=== PATIENT | male | born 1960 | race Caucasian/White ===

== ENCOUNTER 2020-08-20 11:00 | Inpatient (IN) | payer OTHER, MEDICAID, SELFPAY ==
[~2020-08-20] VITALS: Ht 167.6 cm; Wt 68.0 kg
[2020-08-20 11:17] VITALS: BP 161/100
--- NOTE | 2020-08-20 11:17 | NUR ---
PT TAKEN TO BED 4 BY S CREW.
[2020-08-20] MEDS ORDERED: NITROGLYCERIN 0.4 MG TAB SL ONE (11:25)
[2020-08-20] MEDS ORDERED: ALBUTEROL SULFATE/IPRATROPIU 3 ML SOL IH ONE (11:25)
[2020-08-20 12:12] LABS: BASOPHILS % (AUTO) 0.4 % (0.0-2.0); EOSINOPHILS % (AUTO) 0.4 % (0.0-4.0); HEMOGLOBIN 11.6 g/dL (12.0-18.0); LYMPHOCYTES # (AUTO) 0.5 K/uL (2.0-11.5); LYMPHOCYTES % (AUTO) 5.8 % (20.5-51.1); MEAN CORPUSCULAR HEMOGLOBIN 31 pg (27-31); MEAN CORPUSCULAR HGB CONC 32 g/dL (33-37); MEAN CORPUSCULAR VOLUME 95.5 fL (80-94); MONOCYTES % (AUTO) 10.1 % (1.7-9.3); NEUTROPHILS # (AUTO) 7.9 K/uL (1.8-7.7); NEUTROPHILS % (AUTO) 83.3 % (42.2-75.2); PLATELET COUNT (AUTO) 281 K/uL (140-450); RED BLOOD CELL COUNT(AUTO) 3.77 MIL/uL (4.20-6.10); RED CELL DISTRIBUTION WIDTH 17.9 % (11.6-13.7); WHITE BLOOD COUNT (AUTO) 9.5 K/uL (4.8-10.8)
--- NOTE | 2020-08-20 12:19 | NUR ---
PT PLACED ON BIBAP. 95% ON BIPAP.
--- NOTE | 2020-08-20 12:36 | NUR ---
X-Ray at bedside.
[2020-08-20 12:44] LABS: PROTHROMBIN TIME 10.5 secs (10.8-13.4)
[2020-08-20 13:11] LABS: ALBUMIN 3.5 g/dL (3.4-5.0); ANION GAP 19.6 (8-16); CARBON DIOXIDE 23.9 mmol/L (21-32); POTASSIUM 5.5 mmol/L (3.5-5.1); TOTAL BILIRUBIN 0.5 mg/dL (0.0-1.0)
[2020-08-20 13:46] LABS: CREATININE 8.8 mg/dL (0.6-1.3)
--- NOTE | 2020-08-20 15:17 | NUR ---
PATIENT IS ASLEEP IN BED WITH BIPAP ON, DOES NOT APPEAR TO BE IN ANY DISTRESS, VITAL SIGNS STABLE
[2020-08-20] MEDS ORDERED: DOCUSATE SODIUM 100 MG GELCAP PO PRN (16:30)
[2020-08-20] MEDS ORDERED: ONDANSETRON 4 MG/2 ML VIAL IM/IVP PRN (16:30)
[2020-08-20] MEDS ORDERED: ACETAMINOPHEN 325 MG TAB PO PRN (16:30)
[2020-08-20] MEDS ORDERED: HYDROcodone/APAP 7.5/325 MG 1 TAB PO PRN (16:30)
[2020-08-20 17:26] LABS: CHOL/HDL RATIO 2.5 (1-4.5); FREE T4 (FREE THYROXINE) 0.86 ng/dL (0.76-1.46); THYROID STIMULATING HORMONE 0.35 uIU/mL (0.34-3.74)
--- NOTE | 2020-08-20 19:30 | NUR ---
RECEIVED REPORT FROM MJ RN FOR CONTINUATION OF CARE AT THIS TIME. PT IS ASLEEP IN SEMI FOWLERS POSITION. PT IS CONNECTED TO THE BONDED STRAND OPERATOR. PT IS ON 15L NRB SAO2@95%. BED IS LOCKED AND IN LOWEST POSITION. SIDE RAILSX1. PT IS NOT IN ANY ACUTE DISTRESS AT THIS TIME. WILL CONTINUE TO MONITOR.
--- NOTE | 2020-08-20 20:30 | NUR ---
PT IS ASLEEP IN SEMI FOWLERS POSITION. PT IS CONNECTED TO THE SORORITY MOTHER. PT IS ON 15L NRB SAO2@95%. BED IS LOCKED AND IN LOWEST POSITION. SIDE RAILSX1. PT IS NOT IN ANY ACUTE DISTRESS AT THIS TIME. WILL CONTINUE TO MONITOR.
--- NOTE | 2020-08-20 21:00 | NUR ---
PT REFUSING TO KEEP HIS OXYGEN MASK ON. PT REQUESTING SODA. PT WAS REMINDED THAT HE NEEDS TO KEEP HIS NRB ON IN ORDER TO PREVENT HIS OXYGEN LEVELS TO DROP.
--- NOTE | 2020-08-20 21:30 | NUR ---
PT IS RESTING IN LEFT SIDE LYING POSITION. PT IS CONNECTED TO THE DETECTIVE INVESTIGATOR. PT IS ON 15L NRB SAO2@95%. BED IS LOCKED AND IN LOWEST POSITION. SIDE RAILSX1. PT IS NOT IN ANY ACUTE DISTRESS AT THIS TIME. WILL CONTINUE TO MONITOR.
--- NOTE | 2020-08-20 22:23 | NUR ---
PT THREATENING TO LEAVE AMA BECAUSE HE WANTS A PEPSI. PT DISCONNECTED HIMSELF FROM THE PROFESSIONAL BASS FISHERMAN AND REMOVED HIS OXYGEN MASK. PT ADVISED TO KEEP HIS OXYGEN ON TO PREVENT HIM FROM DESATTING AND GOING INTO RESPIRATORY DISTRESS.
--- NOTE | 2020-08-20 23:31 | NUR ---
Spoke with Marcella the pts sister for a pt status update
--- NOTE | 2020-08-21 | NUR ---
PT IS RESTING AND LAYING ON HIS LEFT SIDE WITH HOB IN SEMI FOWLERS POSITION. PT IS CONNECTED TO THE CUTTER BANANA ROOM. PT IS ON 15L NRB SAO2@97%. BED IS LOCKED AND IN LOWEST POSITION. SIDE RAILSX1. PT IS NOT IN ANY ACUTE DISTRESS AT THIS TIME. WILL CONTINUE TO MONITOR.
--- NOTE | 2020-08-21 01:30 | NUR ---
DAYANA HUNT AND MRSA SWAB COLLECTED AND WALKED OVER TO LAB.
--- NOTE | 2020-08-21 01:50 | NUR ---
PT C/O THIRST, PROVIDED WITH ICE CHIPS. PT WAS REMINDED THAT HE IS RETAINING A LOT OF FLUID AT THIS TIME.
--- NOTE | 2020-08-21 01:50 | NUR ---
PT IS CONNECTED TO THE REGIONAL CLINICAL RESEARCH ASSOCIATE. PT IS ON 15L NRB SAO2@96%. BED IS LOCKED AND IN LOWEST POSITION. SIDE RAILSX1. PT IS NOT IN ANY ACUTE DISTRESS AT THIS TIME. WILL CONTINUE TO MONITOR.
--- NOTE | 2020-08-21 03:00 | NUR ---
PT STATED THAT HIS IV CAME OUT. IV CATHETER WAS INTACT.
--- NOTE | 2020-08-21 04:21 | NUR ---
PT REQUESTING WATER AND ICE, PROVIDED HIM WITH BOTH. PT HAD NONREBREATHER MASK OFF AND HAD DISCONNECTED HIMSELF FROM BEDSIDE MONITOR. ADVISED PT HE NEEDS TO LEAVE MASK ON DUE TO CONTINUED DESATURATION WITHOUT IT AND THE NEED TO MONITOR HIS VITAL SIGNS. PT VERBALIZED UNDERSTANDING.
[2020-08-21] MEDS ORDERED: methylPREDNISolone SS 40 MG/ML VIAL IVP SCH (05:00)
--- NOTE | 2020-08-21 05:30 | NUR ---
PT C/O THE NEED FOR HIS DIALYSIS TREATMENT. PT STATES HE NEEDS DIALYSIS NOW. PT MADE AWARE OF THE FACT THAT NO BEDS ARE AVAILABLE YET AND THAT THIS HOSPITAL DOES NOT HAVE A PORTABLE DIALYSIS MACHINE. PT IS AGGRAVATED AT THIS TIME.
--- NOTE | 2020-08-21 06:40 | NUR ---
CHARGE NURSE SPEAKING TO PT REGARDING HIS ADMISSION IN ORDER FOR HIM TO RECEIVE DIALYSIS
--- NOTE | 2020-08-21 07:15 | NUR ---
REPORT GIVEN TO MITRA HAMMONDS FOR TRANSFER OF CARE AT THIS TIME.
--- NOTE | 2020-08-21 08:23 | NUR ---
Admitted VSS Renal has seen Has been admitted Report to floor Ambulated to Placed in bed Nurse aware
[2020-08-21] MEDS ORDERED: CINACALCET 30 MG TAB PO SCH (09:00)
[2020-08-21] MEDS ORDERED: VIT-B COMP/VIT-C/FOLIC ACID 1 TAB PO SCH (09:00)
--- NOTE | 2020-08-21 09:00 | NUR ---
PATIENT ARRIVED AT [facility] AT 0900. REPORT RECEIVED FROM MITRA HAMMONDS. PATIENT ARRIVED AT FACILITY DUE TO ACUTE RESPIRATORY DISTRESS AND FLUID OVERLOAD DUE TO MISSED DIALYSIS. PATIENT IS A&OX3. HE UNDERSTANDS OTHERS AND CAN FOLLOW COMMANDS. PATIENT IS A FULL CODE. SISTER MIREYA BOB NOTIFIED OF ARRIVAL AND UPDATED ON CURRENT. DR. ORTIZ IS AWARE OF PATIENT'S TRANSFER AND DR MENDOZA THE CONSULTING SALES MANAGER IS ALSO AWARE. ORDERED DIALYSIS FROM 08/20/2020 BUT IS STILL WAITING FOR TREATMENT. PATIENT IS ABLE TO AMBULATE BUT IS UNSTEADY. PATIENT IS EXPERIENCING TACHYPNEA AND HAS SOB. HE IS ON NONREBREATHER 100% AT 15L. PATIENTS HEART SOUNDS ARE CLEAR BUT PATIENT CURRENTLY EXPERIENCING TACHYCARDIA. PATIENT IS CONTINENT IN BOWEL AND BLADDER AND PREFERS TO USE A URINAL. PATIENT'S SKIN IS HAS MULTIPLE BLISTERS AND LACERATIONS ALL ALONG HIS EXTREMITIES. PATIENT APPEARS UNCLEAN AND PREFERS TO STAY IN OUTSIDE CLOTHES. PATIENT SMOKES AND ASKS FOR A CIGARETTE EVERY TIME HE APPEARS STRESSED. PATIENT CAN SMOKE UP TO 3 PACKS A WEEK. VITALS BP 146/98 P 102 o2 SAT 100% ON 15l NONREBREATHER, RR 25, TEMP 98.4F.
[2020-08-21 11:00] LABS: BASOPHILS % (AUTO) 0.5 % (0.0-2.0); EOSINOPHILS % (AUTO) 0.4 % (0.0-4.0); HEMATOCRIT 34.6 % (36-52); HEMOGLOBIN 11.2 g/dL (12.0-18.0); LYMPHOCYTES # (AUTO) 0.5 K/uL (2.0-11.5); LYMPHOCYTES % (AUTO) 5.3 % (20.5-51.1); MEAN CORPUSCULAR HEMOGLOBIN 31 pg (27-31); MEAN CORPUSCULAR HGB CONC 32 g/dL (33-37); MEAN CORPUSCULAR VOLUME 95.9 fL (80-94); MONOCYTES # (AUTO) 1.4 K/uL (0.8-1.0); MONOCYTES % (AUTO) 15.2 % (1.7-9.3); NEUTROPHILS # (AUTO) 7.3 K/uL (1.8-7.7); NEUTROPHILS % (AUTO) 78.6 % (42.2-75.2); PLATELET COUNT (AUTO) 250 K/uL (140-450); RED BLOOD CELL COUNT(AUTO) 3.61 MIL/uL (4.20-6.10); RED CELL DISTRIBUTION WIDTH 17.8 % (11.6-13.7); WHITE BLOOD COUNT (AUTO) 9.3 K/uL (4.8-10.8)
--- NOTE | 2020-08-21 11:00 | NUR ---
PATIENT STORMS OUT OF HIS ROOM WITHOUT A MASK VERY AGITATED AND OUT OF BREATH. APPROACHED THE PATIENT AND ASKED HIM WHAT WAS WRONG AND WHY HE WAS OUT OF HIS ROOM. PATIENT STATES THAT HE HAS BEEN WAITING FOR A PEPSI AND WANTS TO SMOKE. INFORMED PATIENT THAT SMOKING IS NOT TOLERATED AT THE HOSPITAL AND HE IS PUTTING HIMSELF AT RISK BY WALKING AROUND WITHOUT A MASK. PROVIDED A MASK TO THE PATIENT. TOLD PATIENT THAT HE WILL RECEIVE A SOFT DRINK WHEN LUNCH COMES. GAVE PATIENT A TURKEY SANDWICH AND SOME WATER WHILE HE WAITED. RECONNECTED PATIENT TO NONREBREATHER @ 15L. INQUIRED ABOUT DIET ORDER WITH DR ORTIZ. ORDERED A RENAL DIET. NOTIFIED KITCHEN.
[2020-08-21 11:18] LABS: ANION GAP 25.3 (8-16)
[2020-08-21 11:31] LABS: POTASSIUM 6.3 mmol/L (3.5-5.1)
[2020-08-21 11:44] LABS: MAGNESIUM 4.3 mg/dL (1.8-2.4); PHOSPHORUS 16.2 mg/dL (2.5-4.9)
[2020-08-21 12:00] VITALS: BP 146/98
[2020-08-21] MEDS ORDERED: LANTHANUM CARBONATE 500 MG TAB PO SCH (12:00)
[2020-08-21] MEDS ORDERED: SEVELAMER CARBONATE 800 MG TAB PO SCH (12:00)
--- NOTE | 2020-08-21 12:00 | NUR ---
NOTIFIED DR MENDOZA REGARDING PATIENT'S DIALYSIS SCHEDULE. DR MENDOZA STATED THAT HE ORDERED THE DIALYSIS TREATMENT YESTERDAY. FOLLOWED UP AND CALLED IN HOUSE DIALYSIS NURSE AND SHE STATED THAT SHE WOULD COME TODAY BUT DID NOT KNOW THE TIME. NABOR FROM LAB REPORTED CRITICAL VALUES OF K+ 6.3 WITH NO HEMOLYSIS, CREATININE 11.0, BUN 86, MAG 4.3, PHOSPHORUS 16.2. NOTIFIED DR ORTIZ AND DR MENDOZA OF CRITICAL VALUES. DR MENDOZA ORDERED KAYEXALATE 60G PO X1 FOR HYPERKALEMIA. HE STATED THAT HE PREFERS THE PATIENT TO RECEIVE DIALYSIS FIRST TO SEE HOW HIS POTASSIUM IS AFTERWARDS. AT 1212 DIALYSIS NURSE ARRIVES. CONSENT FOR DIALYSIS PATIENT SIGNED AND WITNESSED.
[2020-08-21] MEDS ORDERED: SODIUM ZIRCONIUM CYCLOSILICATE 10 GM POWD.PACK PO SCH (14:00)
--- NOTE | 2020-08-21 16:40 | NUR ---
PATIENT FINISHES DIALYSIS TREATMENT WITH 3.3L DRAWN OUT. PATIENT'S BREATHING HAS IMPROVED DRASTICALLY. PATIENT NO LONGER NEEDS THE NONREBREATHER AND o2 SAT ON R/A IS 92%. VITALS BP 116/96, P 101, RR 20, o2 SAT 93% R/A, TEMP 97.4F. AT 1642 PATIENT WALKS OUT OF THE ROOM WITHOUT A MASK AGAIN STATING THAT IT'S TIME FOR HIM TO GO HOME. ASKED THE PATIENT THE REASON AND HE STATES THAT ALL HE NEEDED WAS DIALYSIS.CHARGE NURSE NOTIFIED JOVANY HALL FORM SIGNED BY PATIENT. INFORMED DAUGHTER AND SISTER WILTON BOB ABOUT PATIENT'S DECISION. SISTER WILTON STATED THAT THE PATIENT HAS A LONG HISTORY OF LEAVING [place]. DISCUSSED WITH THE PATIENT WHETHER OR NOT HE KNEW ABOUT A MASS IN HIS LUNG SEEN IN AN XRAY OF THE CHEST AND THE PATIENT STATED THAT IT HAS BEEN THERE FOR A LONG TIME AND NO ONE HAS DONE ANYTHING ABOUT IT. EXPLAINED TO THE PATIENT THAT DIALYSIS WAS NOT THE ONLY REASON FOR HIS STAY AND THAT HIS DR NEEDED TO OBTAIN A CT WITH CONTRAST AND A BIOPSY TO FIGURE OUT WHAT THE MASS IS. RISKS AND CONSEQUENCES EXPLAINED TO THE PATIENT. PATIENT VERBALIZED HIS UNDERSTANDING BUT STILL DECIDED THAT HE WANTS TO GO HOME AND WILL BE CALLING HIS DAUGHTER TO PICK HIM UP. DR ORTIZ ORDERED TO INFORM DAUGHTER AND PATIENT THAT THE PATIENT NEEDS TO F/U WITH HIS PCP REGARDING THE MASS. ACCORDING TO SISTER WILTON, THE PCP ALREADY KNOWS ABOUT THE MASS.
--- NOTE | 2020-08-21 17:25 | NUR ---
PATIENT LEFT [facility]ATUR AT 1725 AND WAS PICKED UP BY HIS DAUGHTER.
[2020-08-22 08:06] LABS: T4 (THYROXINE) 5.2 ug/dL (4.5-12.0)
== END 2020-08-21 17:30 | disposition left against medical advice (07) | DRG 189 ==
LOC: MED 11:00 → MTU 16:46
PROVIDERS: ADMIT Emergency Medicine; ATTEND Emergency Medicine
PROC: 5A1D70Z Performance of Urinary Filtration, Intermittent, Less than 6 Hours Per Day (ICD-10-PCS; principal; 2020-08-20)
PROC: 5A1D70Z Performance of Urinary Filtration, Intermittent, Less than 6 Hours Per Day (ICD-10-PCS; 2020-08-21)
DX: J96.00 Acute respiratory failure, unspecified whether with hypoxia or hypercapnia (principal); N18.6 End stage renal disease; N17.0 Acute kidney failure with tubular necrosis; I21.4 Non-ST elevation (NSTEMI) myocardial infarction; J44.1 Chronic obstructive pulmonary disease with (acute) exacerbation; J81.1 Chronic pulmonary edema; I13.2 Hypertensive heart and chronic kidney disease with heart failure and with stage 5 chronic kidney disease, or end stage renal disease; E78.5 Hyperlipidemia, unspecified; J44.9 Chronic obstructive pulmonary disease, unspecified; E87.5 Hyperkalemia; G47.33 Obstructive sleep apnea (adult) (pediatric); I50.9 Heart failure, unspecified; E87.70 Fluid overload, unspecified; Z53.29 Procedure and treatment not carried out because of patient's decision for other reasons; Z20.828 Contact with and (suspected) exposure to other viral communicable diseases; Z99.2 Dependence on renal dialysis; Z90.5 Acquired absence of kidney; Z85.528 Personal history of other malignant neoplasm of kidney; Z86.73 Personal history of transient ischemic attack (TIA), and cerebral infarction without residual deficits
CPT/HCPCS: 36415; 36600; 71045; 80048; 80053; 82803; 83605; 83735; 83880; 84100; 84436; 84439; 84443; 84479; 84484; 85025; 85610; 85730; 87040; 87081; 94640; 99285; J1644; J2920; U0003